=== PATIENT | male | born 1975 | race Caucasian/White ===

== ENCOUNTER 2019-08-16 15:50 | Emergency (ER) | payer MEDICAID ==
[~2019-08-16] VITALS: Ht 185.4 cm; Wt 85.0 kg
[2019-08-16 15:57] VITALS: BP 128/84
[2019-08-16] MEDS ORDERED: LIDOcaine 5% patch TP STA (17:27)
[2019-08-16] MEDS ORDERED: ketorolac tromethamine 15mg/ml inj. IM ONE (17:30)
[2019-08-16] MEDS ORDERED: IBUP-1985 PO (17:41)
[2019-08-16] MEDS ORDERED: LIDO700A32 TOP (17:41)
== END 2019-08-16 17:49 | disposition home or self-care (01) ==
LOC: ER 15:51
DX: M25.512 Pain in left shoulder (principal); G56.10 Other lesions of median nerve, unspecified upper limb; R20.0 Anesthesia of skin; Z98.890 Other specified postprocedural states; Z56.0 Unemployment, unspecified; Z88.0 Allergy status to penicillin; Z79.899 Other long term (current) drug therapy
CPT/HCPCS: 96372; 99283; J1885

== ENCOUNTER 2021-03-21 23:21 | Emergency (ER) | payer MEDICAID ==
[~2021-03-21] VITALS: Ht 185.4 cm; Wt 104.5 kg
[~2021-03-21 23:21] MED LIST: IBUP-1985 PO; LIDO700A32 TOP
[2021-03-22] MEDS ORDERED: HYDROcodone/acetaminophen 10/325mg tab PO ONE (01:25)
[2021-03-22] MEDS ORDERED: ketorolac trometh. 30mg/ml inj. IM ONE (01:25)
[2021-03-22] MEDS ORDERED: HYDR-3965 PO (02:25)
[2021-03-22 02:38] VITALS: BP 124/83
== END 2021-03-22 02:57 | disposition home or self-care (01) ==
LOC: ER 23:22
DX: R07.89 Other chest pain (principal); R05.9 Cough, unspecified; G89.29 Other chronic pain; F17.200 Nicotine dependence, unspecified, uncomplicated; F12.90 Cannabis use, unspecified, uncomplicated; Z98.890 Other specified postprocedural states; Z72.89 Other problems related to lifestyle; Z56.0 Unemployment, unspecified; Z88.0 Allergy status to penicillin; Z79.899 Other long term (current) drug therapy
CPT/HCPCS: 71046; 96372; 99283; J1885

== ENCOUNTER 2022-11-30 13:27 | Inpatient (IN) | payer MEDICAID ==
[~2022-11-30] VITALS: Ht 185.4 cm; Wt 94.1 kg
[2022-11-30] MEDS ORDERED: methylPREDNISolone sod succ 125mg/2ml vial IV ONE (14:25)
[2022-11-30] MEDS ORDERED: normal saline 1000ml 1,000 ML IV ONE ×3 (14:25→18:10)
[2022-11-30] MEDS ORDERED: diphenhydrAMINE 50 mg/ml inj IV ONE (14:25)
[2022-11-30] MEDS ORDERED: cefepime 2g/NS 100ml ADVANTAGE 100 ML IV ONE (14:37)
--- NOTE | 2022-11-30 15:22 | NUR ---
VASCULAR AT BEDSIDE
--- NOTE | 2022-11-30 16:04 | NUR ---
PTS LEFT HAND IS WHITE AND NO CAP REILL NOTED. CAN'T PALPATE A RADIAL PULSE. VASCULAR WAS JUST AT BEDSIDE AND PULSES WERE PRESENT VIA DOPLER. MD AT BEDSIDE TO EVAL HAND. PT INSTRUCTED TO ELEVATE EXTREMITY. SEIZURE PADS DOUBLED OVER AND USED TO ELEVATE ARM.
[2022-11-30 16:32] LABS: BASOPHILS % (AUTO) 0.1 % (0-1); EOSINOPHILS # (AUTO) 0.1 X10'3 (0-0.9); EOSINOPHILS % (AUTO) 1.1 % (0-6); HEMATOCRIT 45.7 % (42.0-52.0); HEMOGLOBIN 15.3 g/dl (14.0-17.9); LYMPHOCYTES # (AUTO) 0.4 X10'3 (1.1-4.8); LYMPHOCYTES % (AUTO) 6.3 % (21-51); MEAN CORPUSCULAR HGB CONC 33.5 g/dL (33.0-36.5); MEAN CORPUSCULAR VOLUME 92.7 FL (78-98); MEAN PLATELET VOLUME 8.2 FL (7.4-10.4); MONOCYTES # (AUTO) 0.1 X10'3 (0-0.9); NEUTROPHILS # (AUTO) 5.5 X10'3 (1.8-7.7); NEUTROPHILS % (AUTO) 90.5 % (42-75); PLATELET COUNT 234 X10'3 (140-440); RED BLOOD COUNT 4.93 X10'6 (4.70-6.10); RED CELL DISTRIBUTION WIDTH 14.5 % (11.5-14.5); WHITE BLOOD COUNT 6.1 X10'3 (4.5-11.0)
[2022-11-30 16:49] LABS: ALANINE AMINOTRANSFERASE 61 U/L (12-78); ALBUMIN 1.8 G/DL (3.4-5.0); ALBUMIN/GLOBULIN RATIO 0.5 (1.1-1.5); ALKALINE PHOSPHATASE 61 IU/L (46-116); ANION GAP 4 (8-16); ASPARTATE AMINO TRANSFERASE 90 U/L (10-37); BILIRUBIN,TOTAL 0.9 MG/DL (0.1-1.0); BLOOD UREA NITROGEN 20 MG/DL (7-18); BUN/CREATININE RATIO 19.2 (10.0-20.0); CALCIUM 8.6 MG/DL (8.5-10.1); CHLORIDE 87 MMOL/L (99-107); CREATININE 1.04 MG/DL (0.60-1.10); GLUCOSE 99 MG/DL (70-104); MAGNESIUM 2.1 MG/DL (1.5-2.4); POTASSIUM 4.1 MMOL/L (3.5-5.1); TOTAL CARBON DIOXIDE 28.4 MMOL/L (24-32); TOTAL PROTEIN 5.4 G/DL (6.4-8.2); eCRCL 98 ML/MIN; eGFR 76 ML/MIN
[2022-11-30 16:51] LABS: SODIUM 119 MMOL/L (135-145)
--- NOTE | 2022-11-30 17:03 | NUR ---
family at [facility]. pt denies needs at this time
[2022-11-30] MEDS ORDERED: magnesium 4gm in 100ml NS 100 ML IV PRN (18:05)
[2022-11-30] MEDS ORDERED: potassium Cl 40MEQ/1/2NS 520ml 520 ML IV PRN (18:05)
[2022-11-30] MEDS ORDERED: potassium Cl 20 mEq SR tablet PO PRN ×2 (18:05)
[2022-11-30] MEDS ORDERED: magnesium hydroxide 30ml (MOM) UD suspension PO PRN (18:05)
[2022-11-30] MEDS ORDERED: magnesium Cl slow-release 64mg tablet PO PRN (18:05)
[2022-11-30] MEDS ORDERED: normal saline 1000ml 1,000 ML IV SCH ×2 (18:05→18:10)
[2022-11-30] MEDS ORDERED: ondansetron/PF 4mg/2ml inj IV PRN (18:05)
[2022-11-30] MEDS ORDERED: acetaminophen 325mg tablet PO PRN (18:05)
[2022-11-30 18:09] LABS: BURR CELLS 1+; PLATELET ESTIMATE NORMAL; TOTAL CELLS COUNTED 100
[2022-11-30] MEDS ORDERED: VANCOmycin 2,000MG in NS 500ml IV soln IV ONE (18:20)
[2022-11-30] MEDS ORDERED: LAMO25TA5 PO (19:14)
[2022-11-30] MEDS ORDERED: DOXY-457 PO (19:14)
[2022-11-30] MEDS ORDERED: HYDR-3964 PO (19:14)
[2022-11-30] MEDS ORDERED: TRAZ-251 PO (19:14)
[2022-11-30] MEDS ORDERED: CHOL100017 PO (19:14)
[2022-11-30] MEDS ORDERED: FAMO20TA8 PO (19:14)
[2022-11-30] MEDS ORDERED: ATOR40TA72 PO (19:14)
[2022-11-30] MEDS ORDERED: DOXE25CA3 PO (19:14)
[2022-11-30] MEDS ORDERED: PANT40TA54 PO (19:14)
[2022-11-30 19:20] LABS: BILIRUBIN,URINE NEGATIVE (Neg); CLARITY,URINE CLEAR (Clear); COLOR,URINE STRAW (Yellow); GLUCOSE, URINE NEGATIVE (Neg); KETONES,URINE NEGATIVE (Neg); LEUKOCYTE ESTERASE ,URINE NEGATIVE (Neg); NITRITES, URINE NEGATIVE (Neg); OCCULT BLOOD,URINE SMALL (Neg); PH,URINE 6.5 (4.8-8.0); PROTEIN,URINE NEGATIVE (Neg); UROBILINOGEN,URINE 0.2 E.U/dL (0.2-1.0)
[2022-11-30 19:23] LABS: URINE AMPHETAMINE SCREEN NEGATIVE (Neg); URINE BARBITUATE SCREEN NEGATIVE (Neg); URINE BENZODIAZEPINES SCREEN NEGATIVE (Neg); URINE CANNABINOID SCREEN POSITIVE (Neg); URINE COCAINE SCREEN NEGATIVE (Neg); URINE OPIATE SCREEN POSITIVE (Neg); URINE PHENCYCLIDINE SCREEN NEGATIVE (Neg)
[2022-11-30 19:26] LABS: UA COLLECTION TYPE VOIDED
[2022-11-30 19:27] LABS: WBC,URINE 0-4 /HPF (0-4)
[2022-11-30 19:28] LABS: BACTERIA,URINE NONE SEEN /HPF (Neg); MUCUS STRANDS NONE SEEN /LPF (Neg); SQUAMOUS EPITHELIAL CELL,UR NONE SEEN /LPF (FEW)
[2022-11-30 19:55] VITALS: TEMP 98.9
[2022-11-30] MEDS ORDERED: pantoprazole 40mg Tablet.DR PO SCH (20:00)
[2022-11-30] MEDS ORDERED: lamoTRIgine 25mg tablet PO SCH (21:00)
[2022-11-30] MEDS ORDERED: traZODone 50mg tablet PO SCH (21:00)
[2022-11-30] MEDS ORDERED: doxepin 25mg capsule PO SCH (21:00)
[2022-11-30] MEDS ORDERED: famotidine 20mg tablet PO SCH (21:00)
[2022-11-30 21:41] VITALS: BP 111/86; PULSE 120; RESP 18; O2SAT 99
[2022-12-01] MEDS ORDERED: cefepime 1GM/NS ADD-VANTAGE 100 ML IV SCH (02:00)
[2022-12-01] MEDS ORDERED: VANCOmycin 1250MG/NS 250ml Bag 250 ML IV SCH (07:00)
[2022-12-01] MEDS ORDERED: enoxaparin 40mg/0.4ml syringe SUBCUT SCH (08:00)
[2022-12-01] MEDS ORDERED: atorvastatin 20mg tablet PO SCH (08:00)
--- NOTE | 2022-12-02 12:48 | NUR ---
PER DR TOMAS, PT WAS CALLED TO INFORMED OF POSITIVE BLOOD CULTURE AND TO HAVE HIM COME IN FOR TREATMENT. NO ANSWER AT THE PHONE # ON RECORD AND MSG WAS LEFT TO CALL BACK SOON POSSIBLE
== END 2022-11-30 21:42 | disposition left against medical advice (07) | DRG 720 ==
LOC: ER 13:28 → ED HOLD 18:05
PROVIDERS: ADMIT Student in an Organized Health Care Education/Training Program; ATTEND Student in an Organized Health Care Education/Training Program
DX: A41.9 Sepsis, unspecified organism (principal); E87.1 Hypo-osmolality and hyponatremia; L03.113 Cellulitis of right upper limb; R65.20 Severe sepsis without septic shock; G89.29 Other chronic pain; M54.9 Dorsalgia, unspecified; E78.00 Pure hypercholesterolemia, unspecified; F31.9 Bipolar disorder, unspecified; Z56.0 Unemployment, unspecified; Z88.8 Allergy status to other drugs, medicaments and biological substances; Z88.0 Allergy status to penicillin
CPT/HCPCS: 36415; 71045; 80053; 80305; 81001; 83605; 83735; 84145; 85007; 85025; 87040; 93971; 99285; G0378; J0692; J1200; J2930; J3370; J7030; J7040

== ENCOUNTER 2024-05-31 14:54 | Outpatient (CLI) | payer MEDICAID ==
[~2024-05-31 14:54] MED LIST changes: +ATOR40TA72 PO; +CHOL100017 PO; +DOXE25CA3 PO; +FAMO20TA8 PO; -IBUP-1985 PO; +LAMO25TA5 PO; -LIDO700A32 TOP; +PANT40TA54 PO; +TRAZ-251 PO
== END 2024-05-31 23:59 | disposition home or self-care (01) ==
LOC: MRI02 14:54
PROVIDERS: ATTEND Physician Assistant Surgical
DX: M79.641 Pain in right hand (principal); M79.642 Pain in left hand; M77.8 Other enthesopathies, not elsewhere classified
CPT/HCPCS: 73218